=== PATIENT | male | born 1985 | race African-American/Black ===

== ENCOUNTER 2018-01-05 13:33 | Emergency (ER) | payer SELFPAY ==
[~2018-01-05] VITALS: Ht 170.2 cm; Wt 106.0 kg
[2018-01-05] MEDS ORDERED: ATEN50TA PO (13:45)
[2018-01-05] MEDS ORDERED: MAGNESIUM/ALUMINUM HYDROXIDE/SIMETHICONE 30ML UDC PO STA (15:05)
[2018-01-05] MEDS ORDERED: VISCOUS LIDOCAINE 2% 15 ML UDC PO STA (15:05)
[2018-01-05] MEDS ORDERED: FAMOTIDINE 20MG TABLET PO ONE (15:15)
[2018-01-05 15:23] LABS: CHLORIDE 104 mEq/L (98-107)
[2018-01-05 15:27] LABS: BASOPHILS % 0.3 % (0.0-2.0); HEMATOCRIT. 46.2 % (42.0-52.0); HEMOGLOBIN. 15.9 g/dL (14.0-18.0); LYMPHOCYTES % 21.7 % (20.0-50.0); MEAN CORPUSCULAR HEMOGLOBIN 29.4 pg (28.0-32.0); MEAN CORPUSCULAR VOLUME 85.7 fL (80.0-94.0); MEAN PLATELET VOLUME 7.3 fl (7.4-10.4); MONOCYTES % 8.5 % (2.0-8.0); NEUTROPHILS % 69.5 % (40.0-76.0); PLATELET 348 x1000/uL (130-400); RED BLOOD CELL COUNT 5.39 mill/uL (4.7-6.1); RED CELL DISTRIBUTION WIDTH 13.3 % (11.6-14.6)
[2018-01-05] MEDS ORDERED: HYDROCODONE/ACETAMINOPHEN 5/325MG TABLET PO ONE (16:15)
[2018-01-05 18:00] VITALS: BP 115/67
== END 2018-01-05 18:28 | disposition home or self-care (01) ==
LOC: ER 13:33
DX: K29.00 Acute gastritis without bleeding (principal); I10 Essential (primary) hypertension; F17.210 Nicotine dependence, cigarettes, uncomplicated
CPT/HCPCS: 36415; 80053; 83690; 85025; 99284; 99406; Z7610

== ENCOUNTER 2019-06-01 16:33 | Emergency (ER) | payer MEDICAID, OTHER ==
[~2019-06-01] VITALS: Ht 175.3 cm; Wt 108.0 kg
[~2019-06-01 16:33] MED LIST: ATEN50TA PO
[2019-06-01] MEDS ORDERED: ONDANSETRON 4MG ODT PO STA (18:49)
[2019-06-01] MEDS ORDERED: VISCOUS LIDOCAINE 2% 15 ML UDC PO ONE (19:00)
[2019-06-01] MEDS ORDERED: MAGNESIUM/ALUMINUM HYDROXIDE/SIMETHICONE 30ML UDC PO ONE (19:00)
[2019-06-01] MEDS ORDERED: FAMOTIDINE 20MG TABLET PO ONE (19:00)
[2019-06-01 19:23] LABS: BASOPHILS % 0.3 % (0.0-2.0); HEMATOCRIT. 49.9 % (42.0-52.0); HEMOGLOBIN. 17.3 g/dL (14.0-18.0); LYMPHOCYTES % 7.9 % (20.0-50.0); MEAN CORPUSCULAR HEMOGLOBIN 29.4 pg (28.0-32.0); MEAN CORPUSCULAR VOLUME 84.8 fL (80.0-94.0); MEAN PLATELET VOLUME 7.2 fl (7.4-10.4); MONOCYTES % 7.9 % (2.0-8.0); NEUTROPHILS % 83.9 % (40.0-76.0); PLATELET 319 x1000/uL (130-400); RED BLOOD CELL COUNT 5.89 mill/uL (4.7-6.1); RED CELL DISTRIBUTION WIDTH 13.4 % (11.6-14.6)
[2019-06-01 19:24] LABS: CHLORIDE 92 mEq/L (98-107)
[2019-06-01 20:51] VITALS: BP 131/88
== END 2019-06-01 20:45 | disposition home or self-care (01) ==
LOC: ER 16:33
DX: R10.31 Right lower quadrant pain (principal); R11.2 Nausea with vomiting, unspecified; R74.8 Abnormal levels of other serum enzymes; I10 Essential (primary) hypertension
CPT/HCPCS: 36415; 74176; 80053; 83690; 85025; 99284; Q0162

== ENCOUNTER 2019-07-13 12:29 | Inpatient (IN) | payer MEDICAID, OTHER ==
[~2019-07-13] VITALS: Ht 167.6 cm; Wt 116.6 kg
[2019-07-13] MEDS ORDERED: ONDANSETRON HCL 4MG/2ML INJ IV STA (13:04)
[2019-07-13] MEDS ORDERED: FAMOTIDINE 20MG/2ML VIAL IV STA (13:04)
[2019-07-13] MEDS ORDERED: VISCOUS LIDOCAINE 2% 15 ML UDC PO STA (13:04)
[2019-07-13] MEDS ORDERED: MAGNESIUM/ALUMINUM HYDROXIDE/SIMETHICONE 30ML UDC PO STA (13:04)
[2019-07-13] MEDS ORDERED: SODIUM CHLORIDE 0.9% 1,000 ML IV ONE (13:04)
[2019-07-13 13:22] LABS: HEMATOCRIT. 42.9 % (42.0-52.0); HEMOGLOBIN. 15.5 g/dL (14.0-18.0); MEAN CORPUSCULAR HEMOGLOBIN 29.7 pg (28.0-32.0); MEAN PLATELET VOLUME 7.4 fl (7.4-10.4); PLATELET 288 x1000/uL (130-400); RED BLOOD CELL COUNT 5.23 mill/uL (4.7-6.1); RED CELL DISTRIBUTION WIDTH 13.1 % (11.6-14.6)
[2019-07-13 13:33] LABS: INR 1.6; PROTHROMBIN TIME 17.6 sec (9.6-11.0)
[2019-07-13 13:38] LABS: CHLORIDE 69 mEq/L (98-107)
[2019-07-13 14:02] LABS: PLATELET ESTIMATE NORMAL
[2019-07-13 15:28] LABS: CLARITY URINE CLEAR (CLEAR); COLOR URINE DARK YELLOW (YELLOW); KETONES URINE NEGATIVE (NEGATIVE); LEUKOCYTE ESTERASE URINE NEGATIVE (NEGATIVE); NITRITE URINE NEGATIVE (NEGATIVE); OCCULT BLOOD URINE TRACE (NEGATIVE); PH URINE 6.5 (4.5-8.0); PROTEIN URINE NEGATIVE (NEGATIVE); SPECIFIC GRAVITY URINE 1.015 (1.005-1.030)
[2019-07-13] MEDS ORDERED: ACETAMINOPHEN 325MG TABLET PO PRN (16:30)
[2019-07-13] MEDS ORDERED: ONDANSETRON HCL 4MG/2ML INJ IV PRN (16:30)
[2019-07-13] MEDS ORDERED: POTASSIUM CHLORIDE 20MEQ TABLET SR PO NR (16:30)
[2019-07-13] MEDS ORDERED: MORPHINE SULFATE 4 MG/ML CPJ (NOT FOR IM USE) IV ONE (16:30)
[2019-07-13 16:56] LABS: HEPATITIS B SURFACE ANTIGEN NEGATIVE
[2019-07-13] MEDS: SODIUM CHLORIDE 0.9% 1,000 ML IV SCH (17:16)
[2019-07-13 17:26] LABS: HEPATITIS A AB IGM NEGATIVE (NEGATIVE)
[2019-07-13] MEDS: FAMOTIDINE 20MG TABLET PO SCH ×2 (22:37→22:38)
[2019-07-14] VITALS (13 sets, daily range): BP systolic 119–164; BP diastolic 39–97
[2019-07-14] MEDS ORDERED: LISI-604 MT (00:22)
[2019-07-14] MEDS: SODIUM CHLORIDE 0.9% 1,000 ML IV SCH (06:16)
[2019-07-14 06:31] LABS: BASOPHILS % 0.4 % (0.0-2.0); EOSINOPHILS % 0.3 % (0.0-5.0); HEMATOCRIT. 42.9 % (42.0-52.0); HEMOGLOBIN. 15.4 g/dL (14.0-18.0); LYMPHOCYTES % 12.9 % (20.0-50.0); MEAN CORPUSCULAR HEMOGLOBIN 29.7 pg (28.0-32.0); MEAN CORPUSCULAR VOLUME 83.1 fL (80.0-94.0); MEAN PLATELET VOLUME 8.1 fl (7.4-10.4); MONOCYTES % 9.2 % (2.0-8.0); NEUTROPHILS % 77.2 % (40.0-76.0); PLATELET 247 x1000/uL (130-400); RED BLOOD CELL COUNT 5.17 mill/uL (4.7-6.1); RED CELL DISTRIBUTION WIDTH 13.6 % (11.6-14.6)
[2019-07-14 06:39] LABS: CHLORIDE 83 mEq/L (98-107)
[2019-07-14] MEDS: MULTIVITAMINS,THER W-MINERALS TABLET PO SCH (09:31)
[2019-07-14] MEDS: FOLIC ACID 1MG TABLET PO SCH (09:31)
[2019-07-14] MEDS: THIAMINE HCL 100MG TABLET PO SCH (09:31)
[2019-07-14] MEDS: PIPERACILLIN/TAZOBACTAM 3.375 G in DEXT 5% WATER 100 ML IV SCH ×3 (11:11→21:20)
[2019-07-14] MEDS: SODIUM CHLORIDE 0.45% 1,000 ML IV SCH (14:53)
[2019-07-14] MEDS: ATENOLOL 50 MG TABLET PO SCH (15:49)
[2019-07-14] MEDS: LISINOPRIL 20MG TABLET PO SCH (15:49)
[2019-07-14 17:38] LABS: *AMPHETAMINES SCREEN URINE NEGATIVE (NEGATIVE); *BARBITURATES SCREEN URINE NEGATIVE (NEGATIVE); *BENZODIAZEPINES SCREEN URINE NEGATIVE (NEGATIVE); *COCAINE SCREEN URINE NEGATIVE (NEGATIVE); METHADONE URINE SCREEN NEGATIVE (NEGATIVE); OPIATES URINE SCREEN NEGATIVE (NEGATIVE)
[2019-07-14 17:39] LABS: CANNABINOID URINE SCREEN NEGATIVE (NEGATIVE); PHENCYCLIDINE URINE SCREEN NEGATIVE (NEGATIVE)
[2019-07-14] MEDS ORDERED: FAMOTIDINE 20MG TABLET PO SCH (21:00)
[2019-07-15 00:05] VITALS: BP 142/60
[2019-07-15 01:59] VITALS: BP 122/67
[2019-07-15] MEDS: SODIUM CHLORIDE 0.45% 1,000 ML IV SCH (03:25)
[2019-07-15] MEDS: PIPERACILLIN/TAZOBACTAM 3.375 G in DEXT 5% WATER 100 ML IV SCH ×2 (03:25→10:29)
[2019-07-15 04:00] VITALS: BP 132/62
[2019-07-15 05:37] VITALS: BP 140/76
[2019-07-15 06:38] LABS: BASOPHILS % 0.4 % (0.0-2.0); HEMATOCRIT. 42.4 % (42.0-52.0); LYMPHOCYTES % 24.9 % (20.0-50.0); MEAN CORPUSCULAR HEMOGLOBIN 29.9 pg (28.0-32.0); MEAN CORPUSCULAR VOLUME 84.2 fL (80.0-94.0); MEAN PLATELET VOLUME 8.1 fl (7.4-10.4); MONOCYTES % 10.8 % (2.0-8.0); NEUTROPHILS % 62.9 % (40.0-76.0); PLATELET 199 x1000/uL (130-400); RED BLOOD CELL COUNT 5.03 mill/uL (4.7-6.1); RED CELL DISTRIBUTION WIDTH 13.7 % (11.6-14.6)
[2019-07-15 07:01] LABS: CHLORIDE 94 mEq/L (98-107)
[2019-07-15 07:14] LABS: CREATINE KINASE 171 IU/L (39-308)
[2019-07-15 08:00] VITALS: BP 162/76
[2019-07-15] MEDS: LISINOPRIL 20MG TABLET PO SCH (08:21)
[2019-07-15] MEDS: MULTIVITAMINS,THER W-MINERALS TABLET PO SCH (08:21)
[2019-07-15] MEDS: THIAMINE HCL 100MG TABLET PO SCH (08:22)
[2019-07-15] MEDS: ATENOLOL 50 MG TABLET PO SCH (08:22)
[2019-07-15] MEDS: FOLIC ACID 1MG TABLET PO SCH (08:22)
[2019-07-15 10:00] VITALS: BP 146/80
[2019-07-15] MEDS ORDERED: POTASSIUM CHLORIDE 20MEQ TABLET SR PO SCH (11:00)
[2019-07-15] MEDS ORDERED: LORAZEPAM 2MG/ML CPJ IV PRN (11:00)
[2019-07-15] MEDS ORDERED: CHLORDIAZEPOXIDE 25MG CAPSULE PO SCH (14:00)
[2019-07-15 15:27] LABS: PHOSPHORUS 1.2 mg/dL (2.5-4.9)
== END 2019-07-15 16:28 | disposition left against medical advice (07) | DRG 770 ==
LOC: ER 12:29 → 3WST 14:58 → EDBEDREQ 15:04 → EDBEDREQTM 15:04 → EDBEDREQ 23:13 → ENRESERV 23:22
PROVIDERS: ADMIT Internal Medicine; ATTEND Internal Medicine
DX: F10.129 Alcohol abuse with intoxication, unspecified (principal); D68.9 Coagulation defect, unspecified; E87.8 Other disorders of electrolyte and fluid balance, not elsewhere classified; E87.1 Hypo-osmolality and hyponatremia; Z68.41 Body mass index [BMI] 40.0-44.9, adult; A08.4 Viral intestinal infection, unspecified; K70.40 Alcoholic hepatic failure without coma; K70.30 Alcoholic cirrhosis of liver without ascites; I10 Essential (primary) hypertension; K76.0 Fatty (change of) liver, not elsewhere classified; K21.9 Gastro-esophageal reflux disease without esophagitis; Y90.2 Blood alcohol level of 40-59 mg/100 ml; E87.6 Hypokalemia; R73.03 Prediabetes; E66.9 Obesity, unspecified; Z53.29 Procedure and treatment not carried out because of patient's decision for other reasons; Z79.899 Other long term (current) drug therapy; Z71.41 Alcohol abuse counseling and surveillance of alcoholic; Z71.3 Dietary counseling and surveillance
CPT/HCPCS: 36415; 76705; 80053; 80305; 80320; 81003; 82550; 83036; 83735; 84100; 84145; 85025; 86705; 86709; 86803; 87340; 99291; J2060; J2270; J2405; J2543; J3490; J7030; J7060; G0480